=== PATIENT | male | born 1950 | race Caucasian/White ===

== ENCOUNTER 2019-10-05 00:55 | Day surgery (SDC) | payer MEDICARE | END 2019-10-05 22:46 | disposition home or self-care (01) | LOC: WOUND 00:55 | DX: E11.621 Type 2 diabetes mellitus with foot ulcer (principal); E11.40 Type 2 diabetes mellitus with diabetic neuropathy, unspecified; L97.429 Non-pressure chronic ulcer of left heel and midfoot with unspecified severity | CPT/HCPCS: G0463 ==

== ENCOUNTER 2020-03-21 00:09 | Day surgery (SDC) | payer MEDICARE | END 2020-03-21 23:12 | disposition home or self-care (01) | LOC: WOUND 00:09 | DX: E11.621 Type 2 diabetes mellitus with foot ulcer (principal); E11.59 Type 2 diabetes mellitus with other circulatory complications; L97.522 Non-pressure chronic ulcer of other part of left foot with fat layer exposed; E11.21 Type 2 diabetes mellitus with diabetic nephropathy; J45.909 Unspecified asthma, uncomplicated; Z79.84 Long term (current) use of oral hypoglycemic drugs | CPT/HCPCS: 87071; 87075; 87077; 87147; 87186; 87205 ==

== ENCOUNTER 2020-04-11 00:30 | Day surgery (SDC) | payer MEDICARE | END 2020-04-11 22:46 | disposition home or self-care (01) | LOC: WOUND 00:30 | DX: E11.621 Type 2 diabetes mellitus with foot ulcer (principal); L97.522 Non-pressure chronic ulcer of other part of left foot with fat layer exposed; E11.59 Type 2 diabetes mellitus with other circulatory complications; E11.21 Type 2 diabetes mellitus with diabetic nephropathy | CPT/HCPCS: G0463 ==

== ENCOUNTER 2020-04-19 00:40 | Day surgery (SDC) | payer MEDICARE | END 2020-04-19 23:04 | disposition home or self-care (01) | LOC: WOUND 00:40 | DX: E11.621 Type 2 diabetes mellitus with foot ulcer (principal); L97.522 Non-pressure chronic ulcer of other part of left foot with fat layer exposed; E11.52 Type 2 diabetes mellitus with diabetic peripheral angiopathy with gangrene; I96 Gangrene, not elsewhere classified; I89.0 Lymphedema, not elsewhere classified; E11.40 Type 2 diabetes mellitus with diabetic neuropathy, unspecified; E11.59 Type 2 diabetes mellitus with other circulatory complications; E11.21 Type 2 diabetes mellitus with diabetic nephropathy; J45.909 Unspecified asthma, uncomplicated; M10.9 Gout, unspecified; M19.90 Unspecified osteoarthritis, unspecified site; F41.8 Other specified anxiety disorders; G89.29 Other chronic pain | CPT/HCPCS: G0463 ==

== ENCOUNTER 2020-05-03 01:58 | Day surgery (SDC) | payer MEDICARE | END 2020-05-03 22:45 | disposition home or self-care (01) | LOC: WOUND 01:58 | DX: E11.621 Type 2 diabetes mellitus with foot ulcer (principal); L97.522 Non-pressure chronic ulcer of other part of left foot with fat layer exposed; E11.59 Type 2 diabetes mellitus with other circulatory complications; E11.21 Type 2 diabetes mellitus with diabetic nephropathy; E11.40 Type 2 diabetes mellitus with diabetic neuropathy, unspecified; G89.29 Other chronic pain ==

== ENCOUNTER 2020-05-09 00:46 | Day surgery (SDC) | payer MEDICARE | END 2020-05-09 12:00 | disposition home or self-care (01) | LOC: WOUND 00:46 | DX: E11.621 Type 2 diabetes mellitus with foot ulcer (principal); L97.422 Non-pressure chronic ulcer of left heel and midfoot with fat layer exposed; E11.52 Type 2 diabetes mellitus with diabetic peripheral angiopathy with gangrene; I96 Gangrene, not elsewhere classified; E11.40 Type 2 diabetes mellitus with diabetic neuropathy, unspecified; G89.29 Other chronic pain; E11.59 Type 2 diabetes mellitus with other circulatory complications; E11.22 Type 2 diabetes mellitus with diabetic chronic kidney disease; I89.0 Lymphedema, not elsewhere classified; J45.909 Unspecified asthma, uncomplicated; M10.9 Gout, unspecified; M19.90 Unspecified osteoarthritis, unspecified site; F41.8 Other specified anxiety disorders ==

== ENCOUNTER 2020-05-17 00:38 | Day surgery (SDC) | payer MEDICARE | END 2020-05-17 23:01 | disposition home or self-care (01) | LOC: WOUND 00:38 | DX: E11.621 Type 2 diabetes mellitus with foot ulcer (principal); L97.522 Non-pressure chronic ulcer of other part of left foot with fat layer exposed; E11.59 Type 2 diabetes mellitus with other circulatory complications; E11.21 Type 2 diabetes mellitus with diabetic nephropathy; E11.40 Type 2 diabetes mellitus with diabetic neuropathy, unspecified; G89.29 Other chronic pain ==

== ENCOUNTER 2020-05-24 00:51 | Day surgery (SDC) | payer MEDICARE | END 2020-05-24 23:14 | disposition home or self-care (01) | LOC: WOUND 00:51 | DX: E11.621 Type 2 diabetes mellitus with foot ulcer (principal); L97.522 Non-pressure chronic ulcer of other part of left foot with fat layer exposed; E11.59 Type 2 diabetes mellitus with other circulatory complications; E11.21 Type 2 diabetes mellitus with diabetic nephropathy | CPT/HCPCS: G0463 ==

== ENCOUNTER 2020-06-12 02:59 | Day surgery (SDC) | payer MEDICARE | END 2020-06-12 23:32 | disposition home or self-care (01) | LOC: WOUND 02:59 | DX: E11.621 Type 2 diabetes mellitus with foot ulcer (principal); L97.429 Non-pressure chronic ulcer of left heel and midfoot with unspecified severity; E11.59 Type 2 diabetes mellitus with other circulatory complications; E11.21 Type 2 diabetes mellitus with diabetic nephropathy; I89.0 Lymphedema, not elsewhere classified; J45.909 Unspecified asthma, uncomplicated; M10.9 Gout, unspecified; E11.40 Type 2 diabetes mellitus with diabetic neuropathy, unspecified; F41.8 Other specified anxiety disorders; M19.90 Unspecified osteoarthritis, unspecified site | CPT/HCPCS: G0463 ==

== ENCOUNTER 2020-07-09 00:35 | Day surgery (SDC) | payer MEDICARE | END 2020-07-09 06:25 | disposition home or self-care (01) | LOC: WOUND 00:35 | DX: E11.621 Type 2 diabetes mellitus with foot ulcer (principal); L97.421 Non-pressure chronic ulcer of left heel and midfoot limited to breakdown of skin; E11.59 Type 2 diabetes mellitus with other circulatory complications; E11.21 Type 2 diabetes mellitus with diabetic nephropathy; E11.40 Type 2 diabetes mellitus with diabetic neuropathy, unspecified; G89.29 Other chronic pain; M20.40 Other hammer toe(s) (acquired), unspecified foot; I89.0 Lymphedema, not elsewhere classified; J45.909 Unspecified asthma, uncomplicated; M10.9 Gout, unspecified; M19.90 Unspecified osteoarthritis, unspecified site; F41.8 Other specified anxiety disorders ==

== ENCOUNTER 2020-07-23 00:34 | Day surgery (SDC) | payer MEDICARE | END 2020-07-23 22:49 | disposition home or self-care (01) | LOC: WOUND 00:34 | DX: E11.621 Type 2 diabetes mellitus with foot ulcer (principal); L97.422 Non-pressure chronic ulcer of left heel and midfoot with fat layer exposed; E11.40 Type 2 diabetes mellitus with diabetic neuropathy, unspecified; E11.21 Type 2 diabetes mellitus with diabetic nephropathy; E11.59 Type 2 diabetes mellitus with other circulatory complications; M20.40 Other hammer toe(s) (acquired), unspecified foot; G89.29 Other chronic pain ==

== ENCOUNTER 2020-08-08 01:31 | Day surgery (SDC) | payer MEDICARE ==
[2020-09-02] MEDS ORDERED: METF500 PO (10:02)
[2020-09-02] MEDS ORDERED: GLIP5 PO (10:03)
[2020-09-02] MEDS ORDERED: LISI20 PO (10:03)
[2020-09-02] MEDS ORDERED: FURO20 PO (10:03)
[2020-09-02] MEDS ORDERED: MORP30 PO (10:04)
[2021-02-05] MEDS ORDERED: TIZA4 PO (11:12)
== END 2020-08-08 22:41 | disposition home or self-care (01) ==
LOC: WOUND 01:31
DX: E11.621 Type 2 diabetes mellitus with foot ulcer (principal); L97.522 Non-pressure chronic ulcer of other part of left foot with fat layer exposed; E11.40 Type 2 diabetes mellitus with diabetic neuropathy, unspecified; G89.29 Other chronic pain; E11.59 Type 2 diabetes mellitus with other circulatory complications; E11.21 Type 2 diabetes mellitus with diabetic nephropathy
CPT/HCPCS: A9270

== ENCOUNTER 2020-08-22 00:18 | Day surgery (SDC) | payer MEDICARE ==
[2020-09-02] MEDS ORDERED: METF500 PO (10:02)
[2020-09-02] MEDS ORDERED: FURO20 PO (10:03)
[2020-09-02] MEDS ORDERED: LISI20 PO (10:03)
[2020-09-02] MEDS ORDERED: GLIP5 PO (10:03)
[2020-09-02] MEDS ORDERED: MORP30 PO (10:04)
[2021-02-05] MEDS ORDERED: TIZA4 PO (11:12)
== END 2020-08-22 23:45 | disposition home or self-care (01) ==
LOC: WOUND 00:18
DX: E11.621 Type 2 diabetes mellitus with foot ulcer (principal); L97.522 Non-pressure chronic ulcer of other part of left foot with fat layer exposed; E11.40 Type 2 diabetes mellitus with diabetic neuropathy, unspecified; E11.21 Type 2 diabetes mellitus with diabetic nephropathy; E11.59 Type 2 diabetes mellitus with other circulatory complications
CPT/HCPCS: A9270

== ENCOUNTER 2020-09-05 00:28 | Day surgery (SDC) | payer MEDICARE ==
[~2020-09-05 00:28] MED LIST: FURO20 PO; GLIP5 PO; LISI20 PO; METF500 PO; MORP30 PO
[2021-02-05] MEDS ORDERED: TIZA4 PO (11:12)
== END 2020-09-05 23:51 | disposition home or self-care (01) ==
LOC: WOUND 00:28
DX: E11.621 Type 2 diabetes mellitus with foot ulcer (principal); L97.421 Non-pressure chronic ulcer of left heel and midfoot limited to breakdown of skin; E11.40 Type 2 diabetes mellitus with diabetic neuropathy, unspecified; E11.59 Type 2 diabetes mellitus with other circulatory complications
CPT/HCPCS: A9270

== ENCOUNTER 2020-09-12 00:12 | Day surgery (SDC) | payer MEDICARE ==
[2021-02-05] MEDS ORDERED: TIZA4 PO (11:12)
== END 2020-09-12 23:45 | disposition home or self-care (01) ==
LOC: WOUND 00:12
DX: E11.621 Type 2 diabetes mellitus with foot ulcer (principal); L97.422 Non-pressure chronic ulcer of left heel and midfoot with fat layer exposed; E11.40 Type 2 diabetes mellitus with diabetic neuropathy, unspecified; E11.59 Type 2 diabetes mellitus with other circulatory complications; E11.21 Type 2 diabetes mellitus with diabetic nephropathy
CPT/HCPCS: A9270

== ENCOUNTER 2020-09-19 00:14 | Day surgery (SDC) | payer MEDICARE ==
[2021-02-05] MEDS ORDERED: TIZA4 PO (11:12)
== END 2020-09-19 23:03 | disposition home or self-care (01) ==
LOC: WOUND 00:14
DX: E11.621 Type 2 diabetes mellitus with foot ulcer (principal); L97.421 Non-pressure chronic ulcer of left heel and midfoot limited to breakdown of skin; E11.40 Type 2 diabetes mellitus with diabetic neuropathy, unspecified; E11.59 Type 2 diabetes mellitus with other circulatory complications; E11.21 Type 2 diabetes mellitus with diabetic nephropathy

== ENCOUNTER 2020-10-01 00:30 | Day surgery (SDC) | payer MEDICARE ==
[2021-02-05] MEDS ORDERED: TIZA4 PO (11:12)
== END 2020-10-01 22:46 | disposition home or self-care (01) ==
LOC: WOUND 00:30
DX: E11.621 Type 2 diabetes mellitus with foot ulcer (principal); L97.421 Non-pressure chronic ulcer of left heel and midfoot limited to breakdown of skin; L97.422 Non-pressure chronic ulcer of left heel and midfoot with fat layer exposed; E11.21 Type 2 diabetes mellitus with diabetic nephropathy; E11.59 Type 2 diabetes mellitus with other circulatory complications

== ENCOUNTER 2020-10-15 00:25 | Day surgery (SDC) | payer MEDICARE ==
[2021-02-05] MEDS ORDERED: TIZA4 PO (11:12)
== END 2020-10-15 23:31 | disposition home or self-care (01) ==
LOC: WOUND 00:25
DX: E11.621 Type 2 diabetes mellitus with foot ulcer (principal); L97.522 Non-pressure chronic ulcer of other part of left foot with fat layer exposed; E11.59 Type 2 diabetes mellitus with other circulatory complications; E11.21 Type 2 diabetes mellitus with diabetic nephropathy
CPT/HCPCS: A9270

== ENCOUNTER 2020-10-28 00:47 | Day surgery (SDC) | payer MEDICARE | END 2020-10-28 22:53 | disposition home or self-care (01) | LOC: WOUND 00:47 | DX: E11.621 Type 2 diabetes mellitus with foot ulcer (principal); L97.421 Non-pressure chronic ulcer of left heel and midfoot limited to breakdown of skin; E11.40 Type 2 diabetes mellitus with diabetic neuropathy, unspecified; E11.21 Type 2 diabetes mellitus with diabetic nephropathy; E11.59 Type 2 diabetes mellitus with other circulatory complications | CPT/HCPCS: A9270; G0463 ==

== ENCOUNTER 2020-11-06 00:23 | Day surgery (SDC) | payer MEDICARE | END 2020-11-06 22:47 | disposition home or self-care (01) | LOC: WOUND 00:23 | DX: E11.621 Type 2 diabetes mellitus with foot ulcer (principal); L97.522 Non-pressure chronic ulcer of other part of left foot with fat layer exposed; E11.59 Type 2 diabetes mellitus with other circulatory complications; E11.21 Type 2 diabetes mellitus with diabetic nephropathy ==

== ENCOUNTER 2020-12-20 04:18 | Day surgery (SDC) | payer MEDICARE ==
[2021-02-05] MEDS ORDERED: TIZA4 PO (11:12)
== END 2020-12-20 23:10 | disposition home or self-care (01) ==
LOC: WOUND 04:18
DX: E11.621 Type 2 diabetes mellitus with foot ulcer (principal); L97.421 Non-pressure chronic ulcer of left heel and midfoot limited to breakdown of skin; E11.59 Type 2 diabetes mellitus with other circulatory complications; E11.21 Type 2 diabetes mellitus with diabetic nephropathy
CPT/HCPCS: A9270; G0463

== ENCOUNTER 2021-01-03 04:41 | Day surgery (SDC) | payer MEDICARE ==
[2021-02-05] MEDS ORDERED: TIZA4 PO (11:12)
== END 2021-01-03 23:53 | disposition home or self-care (01) ==
LOC: WOUND 04:41
DX: E11.621 Type 2 diabetes mellitus with foot ulcer (principal); L97.522 Non-pressure chronic ulcer of other part of left foot with fat layer exposed; E11.59 Type 2 diabetes mellitus with other circulatory complications; E11.21 Type 2 diabetes mellitus with diabetic nephropathy
CPT/HCPCS: A9270

== ENCOUNTER 2021-01-06 01:00 | Day surgery (SDC) | payer MEDICARE ==
[2021-02-05] MEDS ORDERED: TIZA4 PO (11:12)
== END 2021-01-07 02:23 | disposition home or self-care (01) ==
LOC: WOUND 01:00
DX: E11.621 Type 2 diabetes mellitus with foot ulcer (principal); L97.522 Non-pressure chronic ulcer of other part of left foot with fat layer exposed; E11.59 Type 2 diabetes mellitus with other circulatory complications; E11.21 Type 2 diabetes mellitus with diabetic nephropathy

== ENCOUNTER → 2021-01-07 | Outpatient (CLI) | payer MEDICARE ==
[~2021-01-07] MED LIST changes: +TIZA4 PO
[2021-01-07 11:45] LABS: Creatinine, Urine Random 45.5 mg/dL (27.00-270.00); Microalb/Creat Ratio UR, Rand 24.615 mg/g (0.000-30.000); Microalbumin, Random Urine 11.2 mg/L (0.000-20.000)
[2021-01-07 15:09] LABS: Anion Gap 4 mmol/L (6-16); Blood Urea Nitrogen 26 mg/dL (8-24); Bun/Creatinine Ratio 26.9 (12.0-20.0); CO2, Blood 27 mmol/L (21-32); Calcium, Blood 8.9 mg/dL (8.5-10.1); Chloride, Blood 106 mmol/L (98-108); Creatinine, Blood 0.97 mg/dL (0.60-1.20); Glomerular Filtration Rate >60 (60-); Glucose, Blood 299 mg/dL (70-99); Potassium, Blood 4.5 mmol/L (3.5-5.5); Sodium, Blood 137 mmol/L (136-145)
== END | disposition home or self-care (01) ==
LOC: LAB SHORT 09:56 → LAB 09:56 → LAB FUT 01-02 15:15
PROVIDERS: Family Medicine
DX: E11.9 Type 2 diabetes mellitus without complications (principal)
CPT/HCPCS: 36415; 80048; 82043; 82570

== ENCOUNTER 2021-01-10 01:48 | Day surgery (SDC) | payer MEDICARE ==
[~2021-01-10 01:48] MED LIST changes: -TIZA4 PO
[2021-02-05] MEDS ORDERED: TIZA4 PO (11:12)
== END 2021-01-10 12:00 | disposition home or self-care (01) ==
LOC: WOUND 01:48
DX: E11.621 Type 2 diabetes mellitus with foot ulcer (principal); L97.522 Non-pressure chronic ulcer of other part of left foot with fat layer exposed; E11.59 Type 2 diabetes mellitus with other circulatory complications; E11.21 Type 2 diabetes mellitus with diabetic nephropathy
CPT/HCPCS: A9270

== ENCOUNTER 2021-01-13 00:27 | Day surgery (SDC) | payer MEDICARE ==
[2021-02-05] MEDS ORDERED: TIZA4 PO (11:12)
== END 2021-01-13 23:38 | disposition home or self-care (01) ==
LOC: WOUND 00:27
DX: E11.621 Type 2 diabetes mellitus with foot ulcer (principal); L97.522 Non-pressure chronic ulcer of other part of left foot with fat layer exposed; E11.59 Type 2 diabetes mellitus with other circulatory complications; E11.21 Type 2 diabetes mellitus with diabetic nephropathy; E11.40 Type 2 diabetes mellitus with diabetic neuropathy, unspecified

== ENCOUNTER 2021-01-17 04:55 | Day surgery (SDC) | payer MEDICARE ==
[2021-02-05] MEDS ORDERED: TIZA4 PO (11:12)
== END 2021-01-17 23:42 | disposition home or self-care (01) ==
LOC: WOUND 04:55
DX: E11.621 Type 2 diabetes mellitus with foot ulcer (principal); L97.422 Non-pressure chronic ulcer of left heel and midfoot with fat layer exposed; E11.21 Type 2 diabetes mellitus with diabetic nephropathy; E11.59 Type 2 diabetes mellitus with other circulatory complications; E11.40 Type 2 diabetes mellitus with diabetic neuropathy, unspecified
CPT/HCPCS: A9270; G0463

== ENCOUNTER 2021-01-24 00:33 | Day surgery (SDC) | payer MEDICARE | END 2021-01-24 23:00 | disposition home or self-care (01) | LOC: WOUND 00:33 | DX: E11.621 Type 2 diabetes mellitus with foot ulcer (principal); L97.422 Non-pressure chronic ulcer of left heel and midfoot with fat layer exposed | CPT/HCPCS: A9270 ==

== ENCOUNTER 2021-01-31 01:16 | Day surgery (SDC) | payer MEDICARE | END 2021-01-31 22:48 | disposition home or self-care (01) | LOC: WOUND 01:16 | DX: E11.621 Type 2 diabetes mellitus with foot ulcer (principal); L97.422 Non-pressure chronic ulcer of left heel and midfoot with fat layer exposed; E11.40 Type 2 diabetes mellitus with diabetic neuropathy, unspecified; E11.21 Type 2 diabetes mellitus with diabetic nephropathy; M20.40 Other hammer toe(s) (acquired), unspecified foot | CPT/HCPCS: A9270; G0463 ==

== ENCOUNTER 2021-02-13 02:09 | Day surgery (SDC) | payer MEDICARE ==
[~2021-02-13 02:09] MED LIST changes: +TIZA4 PO
== END 2021-02-13 22:43 | disposition home or self-care (01) ==
LOC: WOUND 02:09
DX: E11.621 Type 2 diabetes mellitus with foot ulcer (principal); L97.522 Non-pressure chronic ulcer of other part of left foot with fat layer exposed; E11.59 Type 2 diabetes mellitus with other circulatory complications; E11.21 Type 2 diabetes mellitus with diabetic nephropathy
CPT/HCPCS: G0463

== ENCOUNTER 2021-02-28 01:12 | Day surgery (SDC) | payer MEDICARE | END 2021-02-28 23:41 | disposition home or self-care (01) | LOC: WOUND 01:12 | DX: E11.621 Type 2 diabetes mellitus with foot ulcer (principal); L97.422 Non-pressure chronic ulcer of left heel and midfoot with fat layer exposed; E11.21 Type 2 diabetes mellitus with diabetic nephropathy; E11.40 Type 2 diabetes mellitus with diabetic neuropathy, unspecified; G89.29 Other chronic pain; M20.40 Other hammer toe(s) (acquired), unspecified foot | CPT/HCPCS: A9270; G0463 ==

== ENCOUNTER 2021-06-10 08:47 | Day surgery (SDC) | payer MEDICARE ==
[~2021-06-10] VITALS: Ht 188 cm; Wt 108.2 kg
[~2021-06-10 08:47] MED LIST changes: +ROSU10TA PO
--- NOTE | 2021-06-10 09:16 | NUR ---
PT AMBULATED INTO [facility] WITH STEADY GAIT. ALERT AND ORIENTED. REPORTS OPEN WOUND ON BOTTOM OF LEFT FOOT THAT IS "SLOW HEALING" DUE TO DIABETES. THE WOUND IS 3 CM IN TOTAL IN DIAMETER, WITH 1.5 CM OPENING IN THE CENTER. IT APPEARS TO BE IN THE CENTER OF A CALLOUS BELOW THE LEFT BIG TOE. PT REPORTS BEING AT THE WOUND CENTER SEVERAL TIMES THROUGHOUT THE LAST SEVERAL MONTHS FOR TREATMENT. THERE IS NO EXUDATE OR BLOOD PRESENT. PINK CENTER OF THE WOUND WITH WHITE MARGINS. PT ALSO HAS A 1.5 CM SCAB ON RIGHT KNUCKLE THAT HAS NO PUS OR SWELLING PRESENT.
--- NOTE | 2021-06-10 17:10 | NUR ---
SUMMARY PT S/O R TKA THIS SHIFT. VSS. PT HAS RATED PAIN CONSISTENTLY BETWEEN 3-4 AND STATES IS TOLERABLE. DRESSING TO LEG CDI. POLAR PACK IN PLACE. SITTING UP IN RECLINER. WORKED WITH THERAPY; AMBULATED IN [place]. TXA COMPLETED PER ORDERS. CALL LIGHT IN REACH.
[2021-06-11 04:51] LABS: BASOPHILS ABSOLUTE AUTO 0.01 K/mm3 (0.00-0.23); BASOPHILS PERCENT AUTO 0 % (0-2); EOSINOPHILS ABSOLUTE AUTO 0.02 K/mm3 (0.00-0.68); EOSINOPHILS PERCENT AUTO 0 % (0-6); Hematocrit 28.6 % (37.0-53.0); Hemoglobin 9.4 g/dL (13.5-17.5); IMMATURE GRAN ABSOLUTE AUTO 0.03 K/mm3 (0.00-0.10); IMMATURE GRAN PERCENT AUTO 0 % (0-1); LYMPHOCYTES ABSOLUTE AUTO 1.28 K/mm3 (0.84-5.20); LYMPHOCYTES PERCENT AUTO 14 % (21-46); MONOCYTES ABSOLUTE AUTO 0.66 K/mm3 (0.16-1.47); MONOCYTES PERCENT AUTO 7 % (4-13); Mean Corpuscular HGB 28.5 pg (26.0-34.0); Mean Corpuscular HGB Conc 32.9 g/dL (31.5-36.5); Mean Corpuscular Volume 87 fL (80-100); Mean Platelet Volume 9.3 fL (9.1-12.4); NEUTROPHILS ABSOLUTE AUTO 7.08 K/mm3 (1.96-9.15); NEUTROPHILS PERCENT AUTO 78 % (41-73); Platelet Count 173 K/mm3 (150-400); RDW Coefficient Variation 14.2 % (11.7-14.2); RDW Standard Deviation 45.1 fL (35.1-46.3); White Blood Cell Count 9.08 K/mm3 (4.00-11.30)
--- NOTE | 2021-06-11 04:57 | NUR ---
PT IS IN BED AT THIS TIME WHERE HE REMAINS ALL NIGHT AND IS RESTING COMFORTABLY. HE IS RECOVERING FROM RIGHT KNEE SURGERY, DENIES PAIN AND DISCOMFORT. HE IS MEDICATED WITH ORDERED PAIN MEDS AND POST OP IV ANTIBIOTIC ORDERED, ASSISTED WITH CARE AND ADLS. HIS CALL LIGHT WAS GIVEN TO HIM AND WAS REMINDED TO CALL FOR HELP WHEN ASSISTANCE IS NEEDED HE IS MONITORED.
[2021-06-11 06:09] LABS: Anion Gap 7 mmol/L (6-16); Blood Urea Nitrogen 29 mg/dL (8-24); Bun/Creatinine Ratio 31.5 (12.0-20.0); CO2, Blood 27 mmol/L (21-32); Calcium, Blood 8.7 mg/dL (8.5-10.1); Chloride, Blood 107 mmol/L (98-108); Creatinine, Blood 0.92 mg/dL (0.60-1.20); Glomerular Filtration Rate >60 (60-); Glucose, Blood 119 mg/dL (70-99); Potassium, Blood 4.2 mmol/L (3.5-5.5); Sodium, Blood 141 mmol/L (136-145)
[2021-06-11] MEDS ORDERED: Percocet 5-3251 EACH PO (09:46)
[2021-06-11] MEDS ORDERED: ASPI81CH PO (09:47)
--- NOTE | 2021-06-11 11:19 | NUR ---
DISCHARGE SUMMARY PT POD #1 FOR RIGHT TOTAL KNEE. AQUACEL AND BRENT WRAP DRESSINGS IN PLACE. A SMALL AMOUNT OF DRAINAGE NOTED ON AQUACEL. PT DENIES PAIN RELATED TO SURGERY AT THIS TIME. PT HAS CHRONIC PAIN DUE TO DM NEUROPATHY. CLEARED TO GO HOME BY PHYSICAL THERAPY. EDUCATED PATIENT ON POST OP CARE AND PT EXPRESSED UNDERSTANDING. DC'D HOME WITH .
== END 2021-06-11 11:10 | disposition home or self-care (01) ==
LOC: ORSCMMR 08:47 → ORD 10:00 → SURS 12:53 → ORSCMMR 06-11 11:10
PROVIDERS: Orthopaedic Surgery
PROC: 8E0Y0CZ Robotic Assisted Procedure of Lower Extremity, Open Approach (ICD-10-PCS; principal; 2021-06-10 10:00)
PROC: 0SRC0JA Replacement of Right Knee Joint with Synthetic Substitute, Uncemented, Open Approach (ICD-10-PCS; principal; 2021-06-10 10:00)
DX: M17.11 Unilateral primary osteoarthritis, right knee (principal); Z23 Encounter for immunization; I10 Essential (primary) hypertension; E11.40 Type 2 diabetes mellitus with diabetic neuropathy, unspecified; Z79.84 Long term (current) use of oral hypoglycemic drugs; Z79.899 Other long term (current) drug therapy
CPT/HCPCS: 27447; S2900; 36415; 73560-RT; 80048; 82947; 85025; 90686; 97110; 97110-CQ; 97161; 97530; 97530-CQ; A9270; C1776; G0008; J0171; J0690; J0735; J1100; J1815; J1885; J2270; J2370; J2405; J2704; J2795; J3010; J7120

== ENCOUNTER 2022-11-05 01:12 | Day surgery (SDC) | payer MEDICARE ==
[~2022-11-05 01:12] MED LIST changes: +ASPI81CH PO; +Percocet 5-3251 EACH PO
== END 2022-11-05 22:45 | disposition home or self-care (01) ==
LOC: WOUND 01:12
DX: E11.621 Type 2 diabetes mellitus with foot ulcer (principal); L97.525 Non-pressure chronic ulcer of other part of left foot with muscle involvement without evidence of necrosis; E11.21 Type 2 diabetes mellitus with diabetic nephropathy; E11.59 Type 2 diabetes mellitus with other circulatory complications; E11.40 Type 2 diabetes mellitus with diabetic neuropathy, unspecified
CPT/HCPCS: 73630; G0463

== ENCOUNTER 2022-11-12 02:34 | Day surgery (SDC) | payer MEDICARE | END 2022-11-12 23:22 | disposition home or self-care (01) | LOC: WOUND 02:34 | DX: E11.621 Type 2 diabetes mellitus with foot ulcer (principal); L97.525 Non-pressure chronic ulcer of other part of left foot with muscle involvement without evidence of necrosis; E11.59 Type 2 diabetes mellitus with other circulatory complications; E11.21 Type 2 diabetes mellitus with diabetic nephropathy; E11.40 Type 2 diabetes mellitus with diabetic neuropathy, unspecified; G89.29 Other chronic pain | CPT/HCPCS: G0463 ==

== ENCOUNTER 2022-11-19 01:28 | Day surgery (SDC) | payer MEDICARE | END 2022-11-19 22:56 | disposition home or self-care (01) | LOC: WOUND 01:28 | DX: E11.621 Type 2 diabetes mellitus with foot ulcer (principal); L97.525 Non-pressure chronic ulcer of other part of left foot with muscle involvement without evidence of necrosis; L97.522 Non-pressure chronic ulcer of other part of left foot with fat layer exposed; E11.59 Type 2 diabetes mellitus with other circulatory complications; E11.21 Type 2 diabetes mellitus with diabetic nephropathy; E11.40 Type 2 diabetes mellitus with diabetic neuropathy, unspecified; G89.29 Other chronic pain | CPT/HCPCS: A9270; G0463 ==

== ENCOUNTER 2022-12-03 03:49 | Day surgery (SDC) | payer MEDICARE | END 2022-12-03 22:43 | disposition home or self-care (01) | LOC: WOUND 03:49 | DX: E11.621 Type 2 diabetes mellitus with foot ulcer (principal); L97.525 Non-pressure chronic ulcer of other part of left foot with muscle involvement without evidence of necrosis; L97.522 Non-pressure chronic ulcer of other part of left foot with fat layer exposed; E11.59 Type 2 diabetes mellitus with other circulatory complications; E11.21 Type 2 diabetes mellitus with diabetic nephropathy; G89.29 Other chronic pain | CPT/HCPCS: A9270 ==

== ENCOUNTER 2022-12-09 00:41 | Day surgery (SDC) | payer MEDICARE | END 2022-12-09 22:56 | disposition home or self-care (01) | LOC: WOUND 00:41 | DX: E11.621 Type 2 diabetes mellitus with foot ulcer (principal); L97.522 Non-pressure chronic ulcer of other part of left foot with fat layer exposed; E11.40 Type 2 diabetes mellitus with diabetic neuropathy, unspecified; E11.21 Type 2 diabetes mellitus with diabetic nephropathy; E11.59 Type 2 diabetes mellitus with other circulatory complications ==

== ENCOUNTER 2022-12-11 02:29 | Day surgery (SDC) | payer MEDICARE | END 2022-12-13 22:56 | disposition home or self-care (01) | LOC: WOUND 02:29 | DX: E11.621 Type 2 diabetes mellitus with foot ulcer (principal); L97.525 Non-pressure chronic ulcer of other part of left foot with muscle involvement without evidence of necrosis; E11.59 Type 2 diabetes mellitus with other circulatory complications; E11.21 Type 2 diabetes mellitus with diabetic nephropathy | CPT/HCPCS: A9270 ==

== ENCOUNTER 2022-12-18 03:56 | Day surgery (SDC) | payer MEDICARE | END 2022-12-21 23:15 | disposition home or self-care (01) | LOC: WOUND 03:56 | DX: E11.621 Type 2 diabetes mellitus with foot ulcer (principal); L97.425 Non-pressure chronic ulcer of left heel and midfoot with muscle involvement without evidence of necrosis; L97.522 Non-pressure chronic ulcer of other part of left foot with fat layer exposed; L97.525 Non-pressure chronic ulcer of other part of left foot with muscle involvement without evidence of necrosis; E11.59 Type 2 diabetes mellitus with other circulatory complications; E11.21 Type 2 diabetes mellitus with diabetic nephropathy ==

== ENCOUNTER → 2022-12-25 | Day surgery (SDC) | payer MEDICARE | LOC: WOUND 03:16 | DX: E11.621 Type 2 diabetes mellitus with foot ulcer (principal); L97.425 Non-pressure chronic ulcer of left heel and midfoot with muscle involvement without evidence of necrosis; L89.892 Pressure ulcer of other site, stage 2; L97.522 Non-pressure chronic ulcer of other part of left foot with fat layer exposed; L97.525 Non-pressure chronic ulcer of other part of left foot with muscle involvement without evidence of necrosis; E11.59 Type 2 diabetes mellitus with other circulatory complications; E11.21 Type 2 diabetes mellitus with diabetic nephropathy | CPT/HCPCS: A9270 ==

== ENCOUNTER → 2022-12-30 | Day surgery (SDC) | payer MEDICARE | LOC: WOUND 03:13 | DX: E11.621 Type 2 diabetes mellitus with foot ulcer (principal); L97.425 Non-pressure chronic ulcer of left heel and midfoot with muscle involvement without evidence of necrosis; L97.522 Non-pressure chronic ulcer of other part of left foot with fat layer exposed; L97.525 Non-pressure chronic ulcer of other part of left foot with muscle involvement without evidence of necrosis; E11.59 Type 2 diabetes mellitus with other circulatory complications; E11.21 Type 2 diabetes mellitus with diabetic nephropathy ==

== ENCOUNTER 2023-01-22 01:42 | Day surgery (SDC) | payer MEDICARE | END 2023-01-22 22:42 | disposition home or self-care (01) | LOC: WOUND 01:42 | DX: E11.621 Type 2 diabetes mellitus with foot ulcer (principal); I87.2 Venous insufficiency (chronic) (peripheral); L97.522 Non-pressure chronic ulcer of other part of left foot with fat layer exposed; E11.40 Type 2 diabetes mellitus with diabetic neuropathy, unspecified; E11.21 Type 2 diabetes mellitus with diabetic nephropathy ==

== ENCOUNTER 2023-01-27 01:53 | Day surgery (SDC) | payer MEDICARE | END 2023-01-27 22:49 | disposition home or self-care (01) | LOC: WOUND 01:53 | DX: E11.621 Type 2 diabetes mellitus with foot ulcer (principal); L97.522 Non-pressure chronic ulcer of other part of left foot with fat layer exposed; I87.2 Venous insufficiency (chronic) (peripheral); E11.40 Type 2 diabetes mellitus with diabetic neuropathy, unspecified ==

== ENCOUNTER 2023-02-04 03:05 | Day surgery (SDC) | payer MEDICARE | END 2023-02-04 22:42 | disposition home or self-care (01) | LOC: WOUND 03:05 | DX: E11.621 Type 2 diabetes mellitus with foot ulcer (principal); L97.525 Non-pressure chronic ulcer of other part of left foot with muscle involvement without evidence of necrosis; E11.59 Type 2 diabetes mellitus with other circulatory complications; E11.21 Type 2 diabetes mellitus with diabetic nephropathy ==

== ENCOUNTER 2023-02-12 03:19 | Day surgery (SDC) | payer MEDICARE | END 2023-02-12 22:48 | disposition home or self-care (01) | LOC: WOUND 03:19 | DX: E11.621 Type 2 diabetes mellitus with foot ulcer (principal); E11.40 Type 2 diabetes mellitus with diabetic neuropathy, unspecified; L97.521 Non-pressure chronic ulcer of other part of left foot limited to breakdown of skin; E11.59 Type 2 diabetes mellitus with other circulatory complications; E11.21 Type 2 diabetes mellitus with diabetic nephropathy | CPT/HCPCS: G0463 ==

== ENCOUNTER 2023-02-19 01:12 | Day surgery (SDC) | payer MEDICARE | END 2023-02-19 23:12 | disposition home or self-care (01) | LOC: WOUND 01:12 | DX: Z48.00 Encounter for change or removal of nonsurgical wound dressing (principal); E11.40 Type 2 diabetes mellitus with diabetic neuropathy, unspecified; E11.21 Type 2 diabetes mellitus with diabetic nephropathy | CPT/HCPCS: G0463 ==

== ENCOUNTER 2023-02-25 08:00 | Day surgery (SDC) | payer MEDICARE | END 2023-02-25 23:59 | disposition home or self-care (01) | LOC: WOUND 08:00 | DX: E11.621 Type 2 diabetes mellitus with foot ulcer (principal); L97.525 Non-pressure chronic ulcer of other part of left foot with muscle involvement without evidence of necrosis; E11.59 Type 2 diabetes mellitus with other circulatory complications; E11.21 Type 2 diabetes mellitus with diabetic nephropathy ==

== ENCOUNTER 2023-03-04 03:58 | Day surgery (SDC) | payer MEDICARE | END 2023-03-04 23:20 | disposition home or self-care (01) | LOC: WOUND 03:58 | DX: E11.621 Type 2 diabetes mellitus with foot ulcer (principal); L97.422 Non-pressure chronic ulcer of left heel and midfoot with fat layer exposed; E11.59 Type 2 diabetes mellitus with other circulatory complications; E11.21 Type 2 diabetes mellitus with diabetic nephropathy; E11.40 Type 2 diabetes mellitus with diabetic neuropathy, unspecified ==

== ENCOUNTER 2023-03-10 02:42 | Day surgery (SDC) | payer MEDICARE | END 2023-03-10 22:55 | disposition home or self-care (01) | LOC: WOUND 02:42 | DX: E11.621 Type 2 diabetes mellitus with foot ulcer (principal); L97.422 Non-pressure chronic ulcer of left heel and midfoot with fat layer exposed; I87.2 Venous insufficiency (chronic) (peripheral); E11.21 Type 2 diabetes mellitus with diabetic nephropathy | CPT/HCPCS: G0463 ==

== ENCOUNTER 2023-04-26 01:12 | Day surgery (SDC) | payer MEDICARE | END 2023-04-26 23:12 | disposition home or self-care (01) | LOC: WOUND 01:12 | DX: E11.621 Type 2 diabetes mellitus with foot ulcer (principal); L97.422 Non-pressure chronic ulcer of left heel and midfoot with fat layer exposed; E11.59 Type 2 diabetes mellitus with other circulatory complications; E11.21 Type 2 diabetes mellitus with diabetic nephropathy; L97.529 Non-pressure chronic ulcer of other part of left foot with unspecified severity; M86.8X7 Other osteomyelitis, ankle and foot; Z98.890 Other specified postprocedural states | CPT/HCPCS: 73630; G0463 ==

== ENCOUNTER 2023-05-03 02:03 | Day surgery (SDC) | payer MEDICARE | END 2023-05-03 22:52 | disposition home or self-care (01) | LOC: WOUND 02:03 | DX: E11.621 Type 2 diabetes mellitus with foot ulcer (principal); L97.422 Non-pressure chronic ulcer of left heel and midfoot with fat layer exposed; E11.59 Type 2 diabetes mellitus with other circulatory complications; E11.21 Type 2 diabetes mellitus with diabetic nephropathy ==

== ENCOUNTER 2023-05-05 05:14 | Day surgery (SDC) | payer MEDICARE | END 2023-05-05 23:09 | disposition home or self-care (01) | LOC: WOUND 05:14 | DX: E11.621 Type 2 diabetes mellitus with foot ulcer (principal); L97.422 Non-pressure chronic ulcer of left heel and midfoot with fat layer exposed; E11.59 Type 2 diabetes mellitus with other circulatory complications; E11.21 Type 2 diabetes mellitus with diabetic nephropathy ==

== ENCOUNTER 2023-05-12 02:40 | Day surgery (SDC) | payer MEDICARE | END 2023-05-12 22:51 | disposition home or self-care (01) | LOC: WOUND 02:40 | DX: E11.621 Type 2 diabetes mellitus with foot ulcer (principal); L97.422 Non-pressure chronic ulcer of left heel and midfoot with fat layer exposed; E11.59 Type 2 diabetes mellitus with other circulatory complications; E11.21 Type 2 diabetes mellitus with diabetic nephropathy ==

== ENCOUNTER 2023-05-14 09:45 | Day surgery (SDC) | payer MEDICARE | END 2023-05-14 23:43 | disposition home or self-care (01) | LOC: WOUND 09:45 | DX: E11.621 Type 2 diabetes mellitus with foot ulcer (principal); L97.525 Non-pressure chronic ulcer of other part of left foot with muscle involvement without evidence of necrosis; E11.59 Type 2 diabetes mellitus with other circulatory complications; E11.21 Type 2 diabetes mellitus with diabetic nephropathy | CPT/HCPCS: G0463 ==

== ENCOUNTER 2023-05-19 04:49 | Day surgery (SDC) | payer MEDICARE | END 2023-05-19 23:18 | disposition home or self-care (01) | LOC: WOUND 04:49 | DX: E11.621 Type 2 diabetes mellitus with foot ulcer (principal); L97.522 Non-pressure chronic ulcer of other part of left foot with fat layer exposed; E11.59 Type 2 diabetes mellitus with other circulatory complications; E11.21 Type 2 diabetes mellitus with diabetic nephropathy; E11.40 Type 2 diabetes mellitus with diabetic neuropathy, unspecified | CPT/HCPCS: G0463 ==

== ENCOUNTER 2023-05-26 02:03 | Day surgery (SDC) | payer MEDICARE | END 2023-05-26 22:54 | disposition home or self-care (01) | LOC: WOUND 02:03 | DX: E11.621 Type 2 diabetes mellitus with foot ulcer (principal); L97.525 Non-pressure chronic ulcer of other part of left foot with muscle involvement without evidence of necrosis; E11.59 Type 2 diabetes mellitus with other circulatory complications; E11.21 Type 2 diabetes mellitus with diabetic nephropathy | CPT/HCPCS: G0463 ==

== ENCOUNTER 2023-06-02 06:15 | Day surgery (SDC) | payer MEDICARE | END 2023-06-02 23:01 | disposition home or self-care (01) | LOC: WOUND 06:15 | DX: E11.621 Type 2 diabetes mellitus with foot ulcer (principal); L97.522 Non-pressure chronic ulcer of other part of left foot with fat layer exposed; I87.2 Venous insufficiency (chronic) (peripheral); E11.21 Type 2 diabetes mellitus with diabetic nephropathy | CPT/HCPCS: A9270; G0463 ==

== ENCOUNTER 2023-06-09 02:31 | Day surgery (SDC) | payer MEDICARE | END 2023-06-09 22:48 | disposition home or self-care (01) | LOC: WOUND 02:31 | DX: E11.621 Type 2 diabetes mellitus with foot ulcer (principal); L97.422 Non-pressure chronic ulcer of left heel and midfoot with fat layer exposed; E11.40 Type 2 diabetes mellitus with diabetic neuropathy, unspecified; E11.59 Type 2 diabetes mellitus with other circulatory complications; E11.21 Type 2 diabetes mellitus with diabetic nephropathy | CPT/HCPCS: A9270; G0463 ==

== ENCOUNTER 2023-06-18 03:52 | Day surgery (SDC) | payer MEDICARE | END 2023-06-18 22:50 | disposition home or self-care (01) | LOC: WOUND 03:52 | DX: E11.621 Type 2 diabetes mellitus with foot ulcer (principal); L97.422 Non-pressure chronic ulcer of left heel and midfoot with fat layer exposed; L97.525 Non-pressure chronic ulcer of other part of left foot with muscle involvement without evidence of necrosis; E11.21 Type 2 diabetes mellitus with diabetic nephropathy | CPT/HCPCS: 73630; 87070; 87075; 87076; 87077; 87147; 87185; 87186; 87205; A9270 ==

== ENCOUNTER 2023-06-21 10:05 | Inpatient (IN) | payer MEDICARE ==
[~2023-06-21] VITALS: Ht 188 cm; Wt 102.9 kg
[2023-06-21 10:57] LABS: BASOPHILS ABSOLUTE AUTO 0.03 K/mm3 (0.00-0.23); BASOPHILS PERCENT AUTO 0 % (0-2); EOSINOPHILS ABSOLUTE AUTO 0.07 K/mm3 (0.00-0.68); EOSINOPHILS PERCENT AUTO 1 % (0-6); Hematocrit 29.9 % (37.0-53.0); Hemoglobin 9.4 g/dL (13.5-17.5); IMMATURE GRAN ABSOLUTE AUTO 0.05 K/mm3 (0.00-0.10); IMMATURE GRAN PERCENT AUTO 1 % (0-1); LYMPHOCYTES ABSOLUTE AUTO 1.05 K/mm3 (0.84-5.20); LYMPHOCYTES PERCENT AUTO 12 % (21-46); MONOCYTES ABSOLUTE AUTO 0.78 K/mm3 (0.16-1.47); MONOCYTES PERCENT AUTO 9 % (4-13); Mean Corpuscular HGB Conc 31.4 g/dL (31.5-36.5); Mean Corpuscular Volume 86 fL (80-100); NEUTROPHILS ABSOLUTE AUTO 6.53 K/mm3 (1.96-9.15); NEUTROPHILS PERCENT AUTO 77 % (41-73); Platelet Count 366 K/mm3 (150-400); RDW Coefficient Variation 14.5 % (11.7-14.2); RDW Standard Deviation 45.8 fL (35.1-46.3); Red Blood Cell Count 3.48 M/mm3 (4.30-5.90); White Blood Cell Count 8.51 K/mm3 (4.00-11.30)
[2023-06-21 11:19] LABS: Albumin, Blood 2.8 g/dL (3.4-5.0); Albumin/Globulin Ratio 0.5 (0.8-1.8); Bilirubin, Total 0.3 mg/dL (0.1-1.0); Bun/Creatinine Ratio 28.9 (12.0-20.0); Calcium, Blood 9.1 mg/dL (8.5-10.1); Creatinine, Blood 0.86 mg/dL (0.60-1.20); Globulin, Blood 5.1 g/dL (2.2-4.0); Potassium, Blood 4.4 mmol/L (3.5-5.5); Total Protein, Blood 7.9 g/dL (6.4-8.2)
[2023-06-21 16:55] VITALS: BP 138/70
--- NOTE | 2023-06-21 16:57 | NUR ---
ARRIVES TO SURGICAL UNIT ALERT & PLEASANT. ASSESSMENT CHARTED. L FOOT ELEVATED ON PILLOWS & LEGS OF BED TO MAX ELEVATION. STRONG PULSES. REDDENED BUT PT REPORTS IT HAS DECREASED SINCE ARRIVAL TO ER THIS AM. (PICTURES TAKEN BUT UNABLE TO FIND A PRINTER THAT CONNECTS)
[2023-06-21] MEDS ORDERED: Amlodipine Bes2.5 MG PO (17:25)
[2023-06-21] MEDS ORDERED: MULVITA PO (17:27)
[2023-06-21] MEDS ORDERED: MORP30ER PO (17:27)
[2023-06-21] MEDS ORDERED: B-12500 MC2 PO (17:28)
--- NOTE | 2023-06-21 17:55 | NUR ---
L FOOT WOUNDS 1 BELOW GREAT TOE ON LATERAL SIDE MEASURES 2.3W x 1.2L CM. 1 ON BASE OF FOOT BELOW GREAT TOE MEASURES 1 x 1CM. TOP OF GREAT TOE MEASURES 0.3CM x 0.3CM. 2 ON SIDE & BASE OF FOOT w/ SCANT DRNG. NO DRNG TO WOUND ON TOP OF FOOT.
[2023-06-21 19:53] VITALS: BP 113/64
[2023-06-22 03:55] VITALS: BP 118/70
[2023-06-22 04:10] LABS: BASOPHILS ABSOLUTE AUTO 0.02 K/mm3 (0.00-0.23); BASOPHILS PERCENT AUTO 0 % (0-2); EOSINOPHILS ABSOLUTE AUTO 0.15 K/mm3 (0.00-0.68); EOSINOPHILS PERCENT AUTO 2 % (0-6); Hematocrit 27.2 % (37.0-53.0); Hemoglobin 8.4 g/dL (13.5-17.5); IMMATURE GRAN ABSOLUTE AUTO 0.05 K/mm3 (0.00-0.10); IMMATURE GRAN PERCENT AUTO 1 % (0-1); LYMPHOCYTES PERCENT AUTO 18 % (21-46); MONOCYTES ABSOLUTE AUTO 0.67 K/mm3 (0.16-1.47); MONOCYTES PERCENT AUTO 10 % (4-13); Mean Corpuscular HGB 26.8 pg (26.0-34.0); Mean Corpuscular HGB Conc 30.9 g/dL (31.5-36.5); Mean Corpuscular Volume 87 fL (80-100); Mean Platelet Volume 8.6 fL (9.1-12.4); NEUTROPHILS ABSOLUTE AUTO 4.45 K/mm3 (1.96-9.15); NEUTROPHILS PERCENT AUTO 68 % (41-73); Platelet Count 310 K/mm3 (150-400); RDW Coefficient Variation 14.7 % (11.7-14.2); RDW Standard Deviation 47.1 fL (35.1-46.3); Red Blood Cell Count 3.14 M/mm3 (4.30-5.90); White Blood Cell Count 6.54 K/mm3 (4.00-11.30)
[2023-06-22 04:26] LABS: Bun/Creatinine Ratio 23.6 (12.0-20.0); Calcium, Blood 8.4 mg/dL (8.5-10.1); Creatinine, Blood 0.76 mg/dL (0.60-1.20); Potassium, Blood 4.5 mmol/L (3.5-5.5)
--- NOTE | 2023-06-22 05:06 | NUR ---
SHIFT SUMMARY PT STRUGGLED TO SLEEP LAST NOC. HAD X1 ANXIETY ATTACK AND LORAZEPAM GIVEN X1. MORPHINE PRN PER ORDERS FOR PAIN MANAGEMENT. IVF INFUSING PER ORDERS. LEFT FOOT ULCERS REMAIN UNCHANGED WITH SCANT AMOUNT DRAINAGE. ELEVATED ON PILLOWS. PT REPORTS L FOOT LOOKS A LOT BETTER THIS SHIFT.
[2023-06-22 07:13] VITALS: BP 142/70
--- NOTE | 2023-06-22 10:58 | NUR ---
"Spiritual care Visit | Pt. Request Pt. is awake in bed when he welcomes my visit. While Pt. didsn't remember making a spiritual care request, the Pt. is pleasant. Pt. verbalized that he is expecting to have a toe, and part of his foot surgically amputated sometime tomorrow morning. While Pt. identified himself as an agnostic, the Pt is open to a jessica conversation. 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 Listen with interest and empathy. Rapport seemed to be established. Pt. vebralized gratitude for the spiritual care visit and welcomed this monotypist to return."
--- NOTE | 2023-06-22 13:44 | NUR ---
REPORT GIVEN TO WALLY TO ASSUME CARE
[2023-06-22 15:01] VITALS: BP 129/69
--- NOTE | 2023-06-22 17:52 | NUR ---
SHIFT SUMMARY: LEFT FOOT ULCERS PATIENT IS [place] BUT IS A&OX4. VS ARE WNL AND IS ON RA. PAIN IS MANAGED WITH PO PAIN MEDS. HIS LEFT BIG TOE HAS AN ULCER THAT IS OPEN TO AIR WITH AN ABSORBANCY PAD UNDER THAT LEFT FOOT. PATIENT IS ABLE TO MOVE ALL FINGERS AND TOES WHEN ASKED. HE IS TOLERATING PO INTAKE AND IS VOIDING. PATIENT IS LAYING IN BED WITH CALL LIGHT IN REACH. PATIENT CALLS APPROPRIATELY. THE PLAN IS TO HAVE THE PATIENT NPO AT MIDNIGHT TONIGHT FOR SURGERY WITH DR. WIGGINS TOMORROW WELL CONTINUE PAIN MANAGEMENT.
[2023-06-22 19:27] VITALS: BP 134/63
[2023-06-23] VITALS (14 sets, daily range): BP systolic 117–141; BP diastolic 62–77
[2023-06-23 04:05] LABS: Hematocrit 29.9 % (37.0-53.0); Hemoglobin 9.2 g/dL (13.5-17.5); Mean Corpuscular HGB 26.9 pg (26.0-34.0); Mean Corpuscular HGB Conc 30.8 g/dL (31.5-36.5); Mean Corpuscular Volume 87 fL (80-100); Mean Platelet Volume 8.6 fL (9.1-12.4); Platelet Count 368 K/mm3 (150-400); RDW Coefficient Variation 14.3 % (11.7-14.2); Red Blood Cell Count 3.42 M/mm3 (4.30-5.90); White Blood Cell Count 5.97 K/mm3 (4.00-11.30)
--- NOTE | 2023-06-23 04:20 | NUR ---
SHIFT SUMMARY PT REPORTS HE WAS ABLE TO GET BETTER SLEEP TONIGHT THAN PREVIOUS NIGHT. MORPHINE FOR PAIN MANAGEMENT PRN. LLE ELEVATED ON PILLOWS. NPO SINCE MIDNIGHT AND IVF INFUSING PER ORDERS. PT PLANNING TO GO TO OR TODAY. USES CALL LIGHT APPROPRIATELY.
[2023-06-23 04:21] LABS: Bun/Creatinine Ratio 15.5 (12.0-20.0); Calcium, Blood 8.7 mg/dL (8.5-10.1); Creatinine, Blood 0.84 mg/dL (0.60-1.20); Potassium, Blood 4.7 mmol/L (3.5-5.5)
[2023-06-23 04:48] LABS: BAND PERCENT MAN 4 % (0-8); BASOPHILS PERCENT MAN 0 % (0-2); EOSINOPHILS ABSOLUTE MAN 0.23 K/mm3 (0.00-0.68); EOSINOPHILS PERCENT MAN 4 % (0-6); LYMPHOCYTES ABSOLUTE MAN 1.85 K/mm3 (0.84-5.20); LYMPHOCYTES PERCENT MAN 31 % (21-46); MONOCYTES ABSOLUTE MAN 0.53 K/mm3 (0.16-1.47); MONOCYTES PERCENT MAN 9 % (4-13); MYELOCYTE ABSOLUTE MAN 0.11 K/mm3 (0.00-0.00); MYELOCYTE PERCENT MAN 2 % (0-0); NEUTROPHILS ABSOLUTE MAN 3.22 K/mm3 (1.96-9.15); SEG NEUTROPHILS PERCENT MAN 50 % (41-73); TOTAL CELLS COUNTED 100
--- NOTE | 2023-06-23 06:48 | NUR ---
PT TO DAY SURGERY AT THIS TIME.
--- NOTE | 2023-06-23 07:29 | NUR ---
PRE-OP NOTE PT A&OX4, AMBULATORY IN ROOM, BREATHING RA, NO ACUTE CONCERNS. L FOOT RED, SWOLLEN AND ULCERATED. ALL PT BELONGINGS LEFT IN HOSPITAL ROOM. Patient confirms NPO status and agrees with scheduled surgery. Pre-Op teaching done. Pt verbalizes understanding.IV TO R WRIST PATENT AND RUNNING FLUIDS AT TKO.
--- NOTE | 2023-06-23 09:00 | NUR ---
RETURNS TO SURGICAL ROOM POST OP ASSESSMENT CHARTED. REQUESTS TO REST & SLEEP. DENIES N/V BUT ONLY TAKES SIPS OF WATER.
--- NOTE | 2023-06-23 19:26 | NUR ---
SHIFT SUMMARY SINCE ARRIVING POST OP, PT HAS SLEPT ON & OFF. HAS HAD AN INCREASE IN APPETITE. REPORTS PAIN HAS SIGNIFICANTLY IMPROVED. HAS KEPT UP & ELEVATED EXCEPT WHEN STANDING TO USE URINAL. WORKED w/ THERAPY & IS NOW OVERALL FEELING MUCH BETTER ABOUT HIS SITUATION.
[2023-06-24 05:01] VITALS: BP 126/72
[2023-06-24 05:27] LABS: BASOPHILS ABSOLUTE AUTO 0.02 K/mm3 (0.00-0.23); BASOPHILS PERCENT AUTO 0 % (0-2); EOSINOPHILS ABSOLUTE AUTO 0.16 K/mm3 (0.00-0.68); EOSINOPHILS PERCENT AUTO 2 % (0-6); Hematocrit 25.9 % (37.0-53.0); Hemoglobin 8.1 g/dL (13.5-17.5); IMMATURE GRAN ABSOLUTE AUTO 0.17 K/mm3 (0.00-0.10); IMMATURE GRAN PERCENT AUTO 2 % (0-1); LYMPHOCYTES ABSOLUTE AUTO 2.79 K/mm3 (0.84-5.20); LYMPHOCYTES PERCENT AUTO 34 % (21-46); MONOCYTES ABSOLUTE AUTO 0.64 K/mm3 (0.16-1.47); MONOCYTES PERCENT AUTO 8 % (4-13); Mean Corpuscular HGB Conc 31.3 g/dL (31.5-36.5); Mean Corpuscular Volume 86 fL (80-100); Mean Platelet Volume 8.6 fL (9.1-12.4); NEUTROPHILS ABSOLUTE AUTO 4.37 K/mm3 (1.96-9.15); NEUTROPHILS PERCENT AUTO 54 % (41-73); Platelet Count 362 K/mm3 (150-400); RDW Coefficient Variation 14.4 % (11.7-14.2); RDW Standard Deviation 45.1 fL (35.1-46.3); White Blood Cell Count 8.15 K/mm3 (4.00-11.30)
[2023-06-24 06:25] LABS: Bun/Creatinine Ratio 16.7 (12.0-20.0); Calcium, Blood 8.3 mg/dL (8.5-10.1); Creatinine, Blood 0.96 mg/dL (0.60-1.20); Potassium, Blood 4.2 mmol/L (3.5-5.5)
[2023-06-24 07:50] VITALS: BP 124/72
--- NOTE | 2023-06-24 16:42 | NUR ---
PATIENT DISCHARGED AT APPROX 1330, IV DC'D AND ALL INSTRUCTIONS READ AND AKNOWLEDGED PATIENT LEAVES VIA PRIVATE VEHICLE.
== END 2023-06-24 13:30 | disposition home or self-care (01) | DRG 617 ==
LOC: ER 10:05 → SURS 14:54
PROVIDERS: Physician Assistant; ADMIT Internal Medicine
PROC: 0Y6N0Z9 Detachment at Left Foot, Partial 1st Ray, Open Approach (ICD-10-PCS; principal; 2023-06-21)
DX: E11.69 Type 2 diabetes mellitus with other specified complication (principal); L03.116 Cellulitis of left lower limb; M86.9 Osteomyelitis, unspecified; E11.40 Type 2 diabetes mellitus with diabetic neuropathy, unspecified; G47.00 Insomnia, unspecified; G89.29 Other chronic pain; E78.5 Hyperlipidemia, unspecified; N18.9 Chronic kidney disease, unspecified; E11.22 Type 2 diabetes mellitus with diabetic chronic kidney disease; I12.9 Hypertensive chronic kidney disease with stage 1 through stage 4 chronic kidney disease, or unspecified chronic kidney disease; E11.621 Type 2 diabetes mellitus with foot ulcer; L97.529 Non-pressure chronic ulcer of other part of left foot with unspecified severity; Z79.891 Long term (current) use of opiate analgesic; Z79.84 Long term (current) use of oral hypoglycemic drugs
CPT/HCPCS: 36415; 73620; 73701; 80048; 80053; 82947; 83605; 85025; 90471; 90714; 93005; 93010; 94760; 96361; 96365-59; 96367; 97110; 97116; 97162; 99284-25; A9270; J0295; J1100; J1650; J1956; J2060; J2371; J2405; J2704; J3010; J7030; J7120; Q9967

== ENCOUNTER 2024-09-22 04:51 | Day surgery (SDC) | payer MEDICARE ==
[~2024-09-22 04:51] MED LIST changes: +Amlodipine Bes2.5 MG PO; +B-12500 MC2 PO; +MORP30ER PO; +MULVITA PO
== END 2024-09-22 23:00 | disposition home or self-care (01) ==
LOC: WOUND 04:51
DX: E11.621 Type 2 diabetes mellitus with foot ulcer (principal); L97.521 Non-pressure chronic ulcer of other part of left foot limited to breakdown of skin; E11.42 Type 2 diabetes mellitus with diabetic polyneuropathy; I10 Essential (primary) hypertension; E11.21 Type 2 diabetes mellitus with diabetic nephropathy; Z79.84 Long term (current) use of oral hypoglycemic drugs
CPT/HCPCS: G0463

== ENCOUNTER 2024-09-29 04:08 | Day surgery (SDC) | payer MEDICARE | END 2024-09-29 23:00 | disposition home or self-care (01) | LOC: WOUND 04:08 | DX: E11.621 Type 2 diabetes mellitus with foot ulcer (principal); L97.429 Non-pressure chronic ulcer of left heel and midfoot with unspecified severity; E11.40 Type 2 diabetes mellitus with diabetic neuropathy, unspecified; E11.59 Type 2 diabetes mellitus with other circulatory complications; E11.21 Type 2 diabetes mellitus with diabetic nephropathy; I89.0 Lymphedema, not elsewhere classified; I10 Essential (primary) hypertension ==

== ENCOUNTER 2024-10-06 03:16 | Day surgery (SDC) | payer MEDICARE | END 2024-10-06 23:00 | disposition home or self-care (01) | LOC: WOUND 03:16 | DX: E11.621 Type 2 diabetes mellitus with foot ulcer (principal); L97.422 Non-pressure chronic ulcer of left heel and midfoot with fat layer exposed; E11.59 Type 2 diabetes mellitus with other circulatory complications; E11.21 Type 2 diabetes mellitus with diabetic nephropathy; I89.0 Lymphedema, not elsewhere classified; I10 Essential (primary) hypertension; E11.40 Type 2 diabetes mellitus with diabetic neuropathy, unspecified ==

== ENCOUNTER 2024-10-13 03:59 | Day surgery (SDC) | payer MEDICARE | END 2024-10-13 23:00 | disposition home or self-care (01) | LOC: WOUND 03:59 | DX: Z09 Encounter for follow-up examination after completed treatment for conditions other than malignant neoplasm (principal); E11.59 Type 2 diabetes mellitus with other circulatory complications; E11.21 Type 2 diabetes mellitus with diabetic nephropathy; I89.0 Lymphedema, not elsewhere classified; I10 Essential (primary) hypertension; E11.40 Type 2 diabetes mellitus with diabetic neuropathy, unspecified | CPT/HCPCS: G0463 ==